=== PATIENT | male | born 1975 | race Caucasian/White ===

== ENCOUNTER 2017-11-13 18:20 | Emergency (ER) ==
[2017-11-13] MEDS ORDERED: NITROSTAT SL ONE (18:34)
[2017-11-13 18:35] VITALS: TEMP 97.6; BMI 37.4
--- NOTE | 2017-11-13 18:50 | ED.PDOC ---
General ED Provider: Dr. MARIO PUGH Chief Complaint: Chest Pain Stated Complaint: Onset at 3 pm today. Heavey mid substernal with radiation into Rt shoulder and down Rt arm to elbow. Associated heaviness over chest wth mild dyspnea. Had nitro -2dose today with brief relief after each dose. Presently experiencing pain. Hx of having chest pain in September with recorded normal and two days later had additional chest pain and went into ventricular arrhythmia /necessitating defibrillation 6 times. Ended up being transferred from [facility] to [facility] in [facility] where Cardiac cath revealed multivessel disease with 2 stents. Since this event he has experienced a persistent dull pressure pain in lower mid substernal region without other symptoms until today when he had worsening chest pain with radiation of the pain into LT Upper extremity to the elbow. First dose nitro releived pain for 10 minutes then it returned. 2nd nitro relieved pain for 3 min the he was brought to ER. Similar effect with additional Nitro given here. Time Seen by Physician: 18:30 Mode of Arrival: Walk-In Information Source: Patient Nursing and Triage Documentation Reviewed and Agree: Yes Reviewed sepsis parameters & appropriate labs ordered?: Yes System Inflammatory Response Syndrome: Not Applicable Sepsis Protocol: For patient's 13 years and over: Temp is 96.8 and below OR 101 and greater Pulse >90 BPM Resp >20/minute Acutely Altered Mental Status Are patient's symptoms suggestive of a new infection, such as: -Pneumonia -Skin, Soft Tissue -Endocarditis -UTI -Bone, Joint Infection -Implantable Device -Acute Abdominal Infection -Wound Infection -Meningitis -Blood Stream Catheter Infection -Unknown System Inflammatory Response Syndrome: Not Applicable Past Medical History - Past Medical History Endocrine: Reports: None Cardiovascular: Reports: CAD, Hypertension, Angina, Other (arrhythmia) Respiratory: Reports: None Hematological: Reports: None Gastrointestinal: Reports: None Genitourinary: Reports: None Neuro/Psych: Reports: None Musculoskeletal: Reports: None Cancer: Reports: None - Surgical History General Surgical History: Reports: Heart Cath (3 stents placed) - Family History Family History: Reports: None - Social History Smoking Status: Former smoker Hx Substance Use: No Alcohol Screening: None 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 Lives: With family - Immunizations Tetanus Shot up to Date: Yes Interpretation - Radiology Interpretation Radiology Interpretation By: Radiologist Radiology Results: Negative - Consumer Banker Rate: Normal Rhythm: Sinus Ectopy: None - EKG Interpretation Rate: Normal Rhythm: Sinus Ectopy: None [place]: NL ST Segment: Normal Re-Evaluation - Re-Evaluation Time of Re-Evaluation: 19:30 Status: Unchanged Vital Signs Stable: Yes Pain Level: 4-5/10 dull aching sensation -no different than experienced previously Appearance: NAD Lungs: Clear Skin: Warm and Dry Neuro: Alert and Oriented X3 CV: RRR - Re-Evaluation Time of Re-Evaluation: 21:00 Status: Unchanged Vital Signs Stable: Yes (BP fluctuant) Appearance: NAD Skin: Warm and Dry Neuro: Alert and Oriented X3 CV: RRR Additional Comments: Intiating Nitro drip prior to transfer to [facility] Critical Care Note - Critical Care Note Total Time (mins): 120 Course - Course Hematology/Chemistry: 11/13/17 18:57 11/13/17 18:57 Orders, Labs, Meds: Lab Review 11/13/17 11/13/17 18:57 18:57 WBC 11.09 H RBC 4.84 Hgb 15.4 Hct 43.2 MCV 89.3 MCH 31.8 H MCHC 35.6 H RDW Coeff of Kemal 12.9 Plt Count 241 Immature Gran % (Auto) 0.3 Neut % (Auto) 56.3 Lymph % (Auto) 30.6 [place] % (Auto) 9.6 Eos % (Auto) 2.6 Baso % (Auto) 0.6 Immature Gran # (Auto) 0.0 Neut # 6.2 Lymph # 3.4 [place] # 1.1 Eos # 0.3 Baso # 0.1 Sodium 140 Potassium 3.9 Chloride 105 Carbon Dioxide 27 Anion Gap 11.9 BUN 18 Creatinine 1.16 H Estimated GFR (MDRD) 69.00 BUN/Creatinine Ratio 15.51 Glucose 94 Calcium 9.3 Total Bilirubin 0.6 AST 22 ALT 32 Alkaline Phosphatase 56 Troponin I 0.0200 Total Protein 7.1 Albumin 3.8 Globulin 3.3 Albumin/Globulin Ratio 1.15 Orders Category Date Time Status IV [ED IV/MEDIPORT/POWERPORT] .ONCE EMERGENCY 11/13/17 19:36 Active CBC W/ AUTO DIFF Stat LAB 11/13/17 18:57 Completed CMP [COMPREHENSIVE METABOLIC PANEL] Stat LAB 11/13/17 18:57 Completed TROPONIN I Stat LAB 11/13/17 18:57 Completed 0.9 % Sodium Chloride [Saline Flush] MEDS 11/13/17 19:36 Ordered 1 syr IVF PRN PRN Mag-Al Plus//Lidocaine [Gi Cocktail] MEDS 11/13/17 19:02 Discontinued 30 ml PO ONCE STA Morphine Sulfate [Morphine 2 mg/ml Syringe] MEDS 11/13/17 18:52 Discontinued 2 mg .ROUTE .STK-MED ONE Morphine Sulfate [Morphine 2 mg/ml Syringe] MEDS 11/13/17 18:51 Discontinued 2 mg IVP ONCE STA NITROGLYCERIN/D5W(250ml) MEDS 11/13/17 21:00 Ordered Dextrose 5 % in Water [Premix D5w 250 ml Vial] 1 vial Nitroglycerin/D5w [Nitroglycerin] 25 mg IV 10 mcg/min Nitroglycerin [Nitrostat] MEDS 11/13/17 18:34 Discontinued 0.4 mg SL .STK-MED ONE Nitroglycerin/D5w [Nitroglycerin] 250 ml MEDS 11/13/17 21:00 Discontinued IV .STK-MED CHEST, 1V AP ONLY Stat RADS 11/13/17 18:54 Completed Medications Generic Name Dose Route Start Last Admin Trade Name Freq PRN Reason Stop Dose Admin Nitroglycerin/Dextrose 25 mg/ 250 mls @ 6 mls/hr 11/13/17 21:00 DEXTROSE 5 % IN WATER IV .Q24H SYLWIA Protocol 10 MCG/MIN Sodium Chloride 1 syr 11/13/17 19:36 Saline Flush IVF PRN PRN To flush IV Discontinued Medications Generic Name Dose Route Start Last Admin Trade Name Freq PRN Reason Stop Dose Admin Al Hydroxide/Mg Hydroxide 30 ml 11/13/17 19:02 11/13/17 19:07 Gi Cocktail PO 11/13/17 19:03 30 ml ONCE STA Administration Morphine Sulfate 2 mg 11/13/17 18:51 11/13/17 18:59 Morphine 2 Mg/Ml Syringe IVP 11/13/17 18:52 Not Given ONCE STA Vital Signs: Temp Pulse Resp BP Pulse Ox 11/13/17 20:10 70 16 119/77 92 L 11/13/17 18:21 97.6 F 75 14 135/87 96 Departure - Departure Time of Disposition: 21:30 Disposition: TSF SHORT-TRM HOSP Discharge Problem: Angina at rest Condition: Stable Pt referred to PMD for follow-up: No IPMP verified?: No Allergies/Adverse Reactions: Allergies No Known Allergies Allergy (Unverified 11/13/17 18:28) Home Medications: Ambulatory Orders Aspirin [Aspir-Low] 81 mg PO DAILY 11/13/17 Atorvastatin Calcium 80 mg PO DAILY 11/13/17 Clopidogrel Bisulfate [Plavix] 75 mg PO DAILY 11/13/17 Metoprolol Succinate [Toprol Xl] 25 mg PO DAILY 11/13/17 Nitroglycerin 0.4 mg PO PRN PRN 11/13/17 Transfer Form Completed: Yes (To [facility]) Disposition Discussed With: Patient, Family Additional Information: Patient has experienced persistent discomfort in mid substernal region without EKG changes. Opted to initiate Nitro drip. Discussed case with hospitalist Dr Garcia at [facility] (per patient and families request to be transferred there vs [place]) Explained case to Dr Garcia who agrees with transfer and initiating Nitro drip.Explained plan with patient and family.
[2017-11-13] MEDS ORDERED: MORPHINE 2 MG/ML SYRINGE IVP STA (18:51)
[2017-11-13] MEDS ORDERED: MORPHINE 2 MG/ML SYRINGE ONE (18:52)
[2017-11-13] MEDS ORDERED: GI COCKTAIL PO STA (19:02)
--- NOTE | 2017-11-13 19:23 | DI ---
EXAM: Chest, single view 11/13/2017 HISTORY: Chest pain COMPARISON: 10/17/2017 FINDINGS / IMPRESSION: Cardiomediastinal countours appear stable. There is no focal pulmonary conso lidation. No pleural effusion or pneumothorax. No acute cardiopulmonary process.
[2017-11-13 20:10] VITALS: BP 119/77
[2017-11-13] MEDS ORDERED: NITROGLYCERIN 25 MG in PREMIX D5W 250 ML VIAL 1 VIAL IV SCH (21:00)
[2017-11-13] MEDS ORDERED: NITROGLYCERIN 250 ML IV ONE (21:00)
== END 2017-11-13 21:30 | disposition short-term general hospital (02) ==
LOC: ED 18:20
DX: I20.9 Angina pectoris, unspecified (principal); I25.10 Atherosclerotic heart disease of native coronary artery without angina pectoris; I11.9 Hypertensive heart disease without heart failure; Z95.1 Presence of aortocoronary bypass graft; Z87.891 Personal history of nicotine dependence; Z79.899 Other long term (current) drug therapy
CPT/HCPCS: 36415; 80053; 84484; 85025; 96365; 96375; 99285